=== PATIENT | male | born 1990 | race Hispanic/Latino ===

== ENCOUNTER → 2016-08-20 | Outpatient (REF) | payer OTHER ==
[~2016-08-20] MED LIST: ALBU17IN INH; CITA20TA4 PO; DEPA1TAB3 PO; DEPA500T2 PO; LITH300C PO; PROTPAK PO; VIST25CA PO; VIST50CA PO; ZYPR5TAB2 PO
== END ==
LOC: M SFHCLERA 18:31
PROVIDERS: ATTEND Nurse Practitioner Family
DX: R30.0 Dysuria (principal)

== ENCOUNTER → 2016-08-23 | Outpatient (REF) | payer OTHER | LOC: M SFHCLERA 08:43 | PROVIDERS: ATTEND Family Medicine | DX: R59.0 Localized enlarged lymph nodes (principal); Z53.9 Procedure and treatment not carried out, unspecified reason ==

== ENCOUNTER → 2016-08-26 | Outpatient (REF) | payer OTHER ==
[2016-08-26 11:17] LABS: MEAN CORPUSCULAR HEMOGLOBIN 31.6 pg (27.0-33.0); MEAN CORPUSCULAR HGB CONC 33.7 g/dl (32.0-36.5); MEAN CORPUSCULAR VOLUME 93.6 fl (80.0-96.0); RED CELL DISTRIBUTION WIDTH 12.4 % (11.5-14.5); WHITE BLOOD COUNT 8.2 K/mm3 (4.0-10.0)
[2016-08-26 11:24] LABS: REASON FOR REVIEW COMPREHENSIVE REVIEW
== END ==
LOC: M SFHCLERA 09:09
PROVIDERS: ATTEND Family Medicine
DX: R59.0 Localized enlarged lymph nodes (principal)

== ENCOUNTER → 2016-08-26 | Outpatient (CLI) | payer BC, OTHER ==
--- NOTE | 2016-08-26 13:18 | REP ---
Soft-tissue ultrasound of the left neck : Postauricular lymphadenopathy. Findings: Scanning in the region of the palpable lump inferior to the ear lobe shows an anechoic 0.6 x 0.7 x 0.3 cm structure without visible Doppler flow. It does display enhanced through transmission. This may be a small cyst. Just inferior to this lump, there is a normal-appearing lymph node which measures 0.5 x 0.4 cm in greatest diameter. Caudal to the lump and a little deeper there is a second small anechoic structure with enhanced through transmission measuring 0.4 x 0.4 x 0.2 cm. This may be a second small cyst. There are multiple lymph nodes seen inferior to the parotid. The largest of these measures 1.5 x 1.3 x 0.8 cm. Impression: Several lymph nodes and two small cysts seen in the region. Clinical and possibly sonographic followup is suggested. Signed by Saji Harmon MD 08/26/2016 01:32 P
== END ==
LOC: M LRY 09:10
PROVIDERS: ATTEND Family Medicine
DX: R59.0 Localized enlarged lymph nodes (principal)

== ENCOUNTER → 2016-12-06 | Outpatient (CLI) | payer BC ==
--- NOTE | 2016-12-07 01:43 | REP ---
Clinical: Anterior knee pain. Technique: AP, lateral, bilateral oblique and sunrise views right knee. Findings: The osseous structures and joint spaces are intact and normal. There is no evidence for acute fracture or dislocation. No joint effusion is appreciated. Surrounding soft tissues are unremarkable. No subcutaneous emphysema or radiodense foreign body. Impression: Normal examination. No acute fracture or dislocation. Signed by Tad Talamantes MD 12/07/2016 01:34 A
== END ==
LOC: M LRY 15:53
PROVIDERS: ATTEND Family Medicine
DX: M25.651 Stiffness of right hip, not elsewhere classified (principal)

== ENCOUNTER 2017-08-10 19:37 | Emergency (ER) | payer MEDICAID, BC ==
[2017-08-10 21:16] LABS: BASO % 0.4 % (0.0-1.0); EOS # 0.1 10^3/uL (0.0-0.50); EOS % 1.2 % (0.0-3.0); HEMATOCRIT 42.6 % (42.0-52.0); HEMOGLOBIN 14.9 g/dl (14.0-18.0); IMMATURE GRANULOCYTE % 0.4 % (0-3.0); LYMPH # 2.5 10^3/uL (1.5-6.5); MEAN CORPUSCULAR HEMOGLOBIN 31.6 pg (27.0-33.0); MEAN CORPUSCULAR VOLUME 90.3 fl (80.0-96.0); MONO # 0.7 10^3/uL (0.0-0.8); MONO % 7.5 % (0.0-5.0); NEUTROPHILS # 5.8 10^3/uL (1.8-7.7); NEUTROPHILS % 63.5 % (36.0-66.0); PLATELET COUNT, AUTOMATED 296 10^3/uL (150-450); RED BLOOD COUNT 4.72 10^6/uL (4.30-6.10); WHITE BLOOD COUNT 9.2 10^3/uL (4.0-10.0)
[2017-08-10 21:29] LABS: D-DIMER QUANT 281.7 ng/ml (<500)
[2017-08-10 21:46] LABS: AMPHETAMINES LEVEL URINE NEGATIVE (NEGATIVE); BARBITURATES URINE NEGATIVE (NEGATIVE); BENZODIAZEPINES URINE NEGATIVE (NEGATIVE); CANNABINOIDS URINE POSITIVE (NEGATIVE); COCAINE METABOLITE URINE NEGATIVE (NEGATIVE); METHADONE URINE NEGATIVE (NEGATIVE); OPIATES URINE NEGATIVE (NEGATIVE); PHENCYCLIDINE URINE NEGATIVE (NEGATIVE)
[2017-08-10 21:58] LABS: ANION GAP 8 MEQ/L (8-16); BLOOD UREA NITROGEN 13 MG/DL (7-18); CALCIUM LEVEL 8.7 MG/DL (8.5-10.1); CARBON DIOXIDE LEVEL 25 MEQ/L (21-32); CHLORIDE LEVEL 110 MEQ/L (98-107); CREATININE FOR GFR 1.05 MG/DL (0.70-1.30); FREE THYROXINE INDEX 3.1 % (1.4-3.8); GLOMERULAR FILTRATION RATE > 60.0 (>60); GLUCOSE, FASTING 98 MG/DL (70-100); MAGNESIUM LEVEL 2.3 MG/DL (1.8-2.4); POTASSIUM SERUM 4.5 MEQ/L (3.5-5.1); SODIUM LEVEL 143 MEQ/L (136-145); T UPTAKE 32 % (33-40); THYROID STIMULATING HORMONE 0.951 uIU/ML (0.358-3.740); THYROXINE (T4) 9.6 UG/DL (4.5-12.0)
[2017-08-10] MEDS: ALBUTEROL SULFATE 2.5 MG/0.5 ML INH NEB SOLN INH (22:00)
[2017-08-10 22:26] LABS: TROPONIN I < 0.02 NG/ML (< 0.10)
== END 2017-08-10 22:35 | disposition home or self-care (01) ==
LOC: M ED 19:37
DX: R07.9 Chest pain, unspecified (principal); J98.01 Acute bronchospasm; Z88.0 Allergy status to penicillin
CPT/HCPCS: 71046

== ENCOUNTER 2019-01-22 14:49 | Emergency (ER) | payer MEDICAID, OTHER, SELFPAY ==
[~2019-01-22] VITALS: Ht 182.9 cm; Wt 102.2 kg
[~2019-01-22 14:49] MED LIST changes: -CITA20TA4 PO; +CITA20TA6 PO; +VENTAER IN
--- NOTE | 2019-01-22 15:24 | REP ---
Clinical: Trauma. Fall. Technique: AP, lateral, bilateral oblique views of the left wrist. Findings: Comminuted displaced fractures involving the distal radius and ulna are appreciated along with soft tissue swelling. Impression: Comminuted displaced fractures in evolving the distal radius and ulna. Electronically Signed by Tad Talamantes MD 01/22/2019 03:16 P
[2019-01-22] MEDS ORDERED: ONDANSETRON 4MG/2ML VIAL (J2405) IV ONE (15:30)
[2019-01-22] MEDS ORDERED: ADACEL/BOOSTRIX VACCINE (DIPHTH/PERTUSS/ACELL/TETANUS)0.5ML SYR (90715) IM ONE (15:30)
[2019-01-22] MEDS: HYDROMORPHONE HCL 0.5 MG/ 0.5 ML SYRINGE (J1170 PER 1) IV PRN ×2 (15:40→16:11)
[2019-01-22] MEDS ORDERED: HYDROMORPHONE HCL 0.5 MG/ 0.5 ML SYRINGE (J1170 PER 1) IV ONE (17:30)
[2019-01-22] MEDS ORDERED: PERC5TAB12 PO (18:37)
[2019-01-22 18:50] VITALS: BP 145/83
[2019-01-22] MEDS ORDERED: PERCOCET 5MG/325MG TAB As Ordered ONE (18:57)
[2019-01-22] MEDS ORDERED: PERCOCET 5MG/325MG TAB PO ONE (19:00)
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
--- NOTE | 2019-01-23 07:41 | REP ---
Clinical: Trauma. Technique: Portable AP and lateral views of the left forearm. Findings: Comminuted fracture dislocation involving the distal radius and ulna. Impression: Comminuted fractures of the distal radius and ulna. Electronically Signed by Tad Talamantes MD 01/22/2019 04:02 P
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
== END 2019-01-22 19:10 | disposition home or self-care (01) ==
LOC: M ED 14:49
DX: S52.502A Unspecified fracture of the lower end of left radius, initial encounter for closed fracture (principal); S52.602A Unspecified fracture of lower end of left ulna, initial encounter for closed fracture; T14.8XXA Other injury of unspecified body region, initial encounter; V23.4XXA Motorcycle driver injured in collision with car, pick-up truck or van in traffic accident, initial encounter; Y92.410 Unspecified street and highway as the place of occurrence of the external cause; Z88.0 Allergy status to penicillin
CPT/HCPCS: 29125; 73090; 73110; 73200; 90471; 90715; 93041; 94760; 96374; 96375; 96376; 99285; J1170; J2405

== ENCOUNTER 2019-01-26 09:54 | Day surgery (SDC) | payer OTHER ==
[~2019-01-26] VITALS: Ht 182.9 cm; Wt 100.2 kg
[~2019-01-26 09:54] MED LIST changes: +LIDOCAINE 1% MDV 20ML VIAL SQ PRN; +LIDOCAINE 2% INJ 100 MG/5 ML SDV (FOR ANES.) As Ordered ONE; +LR 1,000 ML IV ONE; +ONDANSETRON 4MG/2ML VIAL (J2405) As Ordered ONE; +PERC5TAB12 PO; +PROPOFOL 200 MG/20 ML VIAL As Ordered ONE; +ROCURONIUM BROMIDE 50 MG/5 ML VIAL As Ordered ONE
[2019-01-26] MEDS ORDERED: LIDOCAINE 1% MDV 20ML VIAL ONE (09:55)
[2019-01-26] MEDS ORDERED: dexameTHASONE 4 MG/ML 1ML VIAL (J1100) ONE (09:55)
[2019-01-26] MEDS ORDERED: ROPIvacaine 0.5% 30 ML INJECTION (J2795 PER 1MG) ONE (09:55)
[2019-01-26] MEDS ORDERED: fentaNYL 250 MCG/5 ML INJECTION (J3010) As Ordered ONE (10:43)
[2019-01-26] MEDS ORDERED: ACETAMINOPHEN 1000MG 100ML IV BTL (OFIRMEV) (J0131 PER 10MG) As Ordered ONE (10:44)
[2019-01-26] MEDS ORDERED: VANCOMYCIN HCL 1,000 MG, VIAL MATE ADAPTER 1 EACH in D5W 250 ML IV ONE (10:45)
[2019-01-26] MEDS ORDERED: MIDAZOLAM INJ 2 MG/2 ML VIAL (J2250) As Ordered ONE ×2 (10:53→11:16)
[2019-01-26] MEDS ORDERED: fentaNYL 100 MCG/2 ML INJECTION (J3010) As Ordered ONE ×2 (10:53→14:12)
--- NOTE | 2019-01-26 11:39 | REP ---
Clinical: Trauma. Technique: AP, lateral, bilateral oblique views right wrist . Findings: The carpal bones, surrounding osseous structures, soft tissues, and joint spaces are normal. There is no evidence for acute fracture or dislocation. No subcutaneous emphysema or radiodense foreign body. Impression: Normal wrist series. No acute fracture or dislocation Electronically Signed by Tad Talamantes MD 01/26/2019 10:32 A
[2019-01-26] MEDS ORDERED: MIDAZOLAM INJ 2 MG/2 ML VIAL (J2250) IV ONE (11:45)
[2019-01-26] MEDS ORDERED: fentaNYL 100 MCG/2 ML INJECTION (J3010) IV ONE (11:45)
[2019-01-26] MEDS ORDERED: ROCURONIUM BROMIDE 50 MG/5 ML VIAL As Ordered ONE (12:28)
[2019-01-26] MEDS ORDERED: SUGAMMADEX SODIUM 500 MG/5 ML VIAL (BRIDION) As Ordered ONE (14:17)
[2019-01-26] MEDS ORDERED: ONDANSETRON 4MG/2ML VIAL (J2405) As Ordered ONE (15:00)
--- NOTE | 2019-01-26 15:01 | REP ---
Left forearm: Six views. History: Intraoperative films. 1 minute 35 seconds of fluoroscopy time is reported. Findings: A sequence of six last image hold fluoroscopically obtained spot radiographs of the distal forearm and wrist document open reduction internal fixation plating of the distal radial and ulnar fractures. Electronically Signed by Saji Harmon MD 01/26/2019 03:49 P
[2019-01-26] MEDS ORDERED: HYDROMORPHONE HCL 0.5 MG/ 0.5 ML SYRINGE (J1170 PER 1) IV PRN (15:15)
[2019-01-26] MEDS ORDERED: NS 1,000 ML IV SCH (15:15)
[2019-01-26] MEDS ORDERED: fentaNYL 100 MCG/2 ML INJECTION (J3010) IV PRN (15:15)
[2019-01-26] MEDS ORDERED: LR 1,000 ML IV SCH (15:15)
[2019-01-26] MEDS ORDERED: PERCOCET 5MG/325MG TAB PO PRN ×3 (15:15→16:15)
[2019-01-26] MEDS ORDERED: ONDANSETRON 4MG/2ML VIAL (J2405) IV PRN (15:15)
[2019-01-26] MEDS ORDERED: METOCLOPRAMIDE INJ 10MG/2ML VIAL (J2765) As Ordered ONE (15:35)
[2019-01-26] MEDS ORDERED: METOCLOPRAMIDE INJ 10MG/2ML VIAL (J2765) IV PRN (15:45)
[2019-01-26 16:35] VITALS: BP 138/80
[2019-01-27] MEDS ORDERED: KETO10TAB PO (16:15)
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
== END 2019-01-26 17:20 | disposition home or self-care (01) ==
LOC: M SDC 09:54
PROVIDERS: ATTEND Orthopaedic Surgery Hand Surgery
DX: S52.252A Displaced comminuted fracture of shaft of ulna, left arm, initial encounter for closed fracture (principal); S52.502A Unspecified fracture of the lower end of left radius, initial encounter for closed fracture; V29.9XXA Motorcycle rider (driver) (passenger) injured in unspecified traffic accident, initial encounter; Y92.410 Unspecified street and highway as the place of occurrence of the external cause; Y99.9 Unspecified external cause status; Y93.89 Activity, other specified; Z88.0 Allergy status to penicillin; K21.9 Gastro-esophageal reflux disease without esophagitis; F41.9 Anxiety disorder, unspecified; F32.9 Major depressive disorder, single episode, unspecified
CPT/HCPCS: 25575; 64415; 73110; 76000; 96374; C1713; J0131; J1100; J2250; J2405; J2765; J2795; J3010; J3370

== ENCOUNTER 2019-01-27 15:06 | Emergency (ER) | payer OTHER ==
[~2019-01-27] VITALS: Ht 182.9 cm; Wt 100.5 kg
[~2019-01-27 15:06] MED LIST changes: -LIDOCAINE 1% MDV 20ML VIAL SQ PRN; -LIDOCAINE 2% INJ 100 MG/5 ML SDV (FOR ANES.) As Ordered ONE; -LR 1,000 ML IV ONE; -ONDANSETRON 4MG/2ML VIAL (J2405) As Ordered ONE; -PROPOFOL 200 MG/20 ML VIAL As Ordered ONE; -ROCURONIUM BROMIDE 50 MG/5 ML VIAL As Ordered ONE
[2019-01-27] MEDS ORDERED: MORPHINE 4 MG/ML 1ML VIAL/SYRINGE (J2270) IM ONE (15:45)
[2019-01-27] MEDS ORDERED: KETO10TAB PO (16:15)
[2019-01-27 16:20] VITALS: BP 151/94
== END 2019-01-27 16:23 | disposition home or self-care (01) ==
LOC: EEVIPCON 15:06 → M ED 15:06
DX: G89.18 Other acute postprocedural pain (principal); S52.252D Displaced comminuted fracture of shaft of ulna, left arm, subsequent encounter for closed fracture with routine healing; S52.502D Unspecified fracture of the lower end of left radius, subsequent encounter for closed fracture with routine healing; X58.XXXA Exposure to other specified factors, initial encounter; Y92.9 Unspecified place or not applicable; Y93.9 Activity, unspecified; Y99.9 Unspecified external cause status; M51.9 Unspecified thoracic, thoracolumbar and lumbosacral intervertebral disc disorder; F41.9 Anxiety disorder, unspecified; F32.9 Major depressive disorder, single episode, unspecified; Z88.0 Allergy status to penicillin
CPT/HCPCS: 99283; J2270

== ENCOUNTER → 2019-03-19 | Outpatient (CLI) | payer OTHER ==
[~2019-03-19] MED LIST changes: +KETO10TAB PO
--- NOTE | 2019-03-20 05:15 | REP ---
Clinical: Palpable lump along the left side of the neck. Technique: Real time breen scale and color evaluation using linear high frequency transducer. Findings: Ultrasound examination along the left side of the neck demonstrates a single normal-appearing lymph node measuring 6.7 x 4.9 x 3.2 mm. Impression: Palpable lump corresponds to normal appearing lymph node. Electronically Signed by Tad Talamantes MD 03/20/2019 05:06 A
== END ==
LOC: M RAD 09:02
PROVIDERS: ATTEND Family Medicine
DX: R59.9 Enlarged lymph nodes, unspecified (principal)

== ENCOUNTER → 2019-09-06 | Outpatient (REF) | payer OTHER ==
[2019-09-06 16:20] LABS: INFLUENZA A AMPLIFICATION NEGATIVE (NEGATIVE); INFLUENZA B AMPLIFICATION NEGATIVE (NEGATIVE)
== END ==
LOC: M LAB REF 15:10
PROVIDERS: ATTEND Physician Assistant
DX: J11.1 Influenza due to unidentified influenza virus with other respiratory manifestations (principal)

== ENCOUNTER → 2020-08-06 | Outpatient (REF) | payer OTHER ==
[2020-08-06 17:32] LABS: CHLAMYDIA DNA AMPLIFICATION NEGATIVE (NEGATIVE); GC DNA AMPLIFICATION NEGATIVE (NEGATIVE)
== END ==
LOC: M SFHCLERA 10:25
PROVIDERS: ATTEND Nurse Practitioner Family
DX: R30.0 Dysuria (principal)

== ENCOUNTER → 2020-08-06 | Outpatient (CLI) | payer OTHER ==
--- NOTE | 2020-08-06 12:29 | REP ---
INDICATION: TESTIS MASS LT. COMPARISON: None. TECHNIQUE: Real-time sonographic evaluation of scrotum and contents performed. FINDINGS: Testicles are normal in size and echotexture, right testicle measuring 4.1 x 2.0 x 2.9 cm left testicle 4.2 x 2.0 x 2.9 cm. There is no testicular mass or torsion. Blood flow is seen in each testicle with duplex Doppler evaluation. 3 mm cyst is seen in the head of the left epididymis. Prominent vas deferens bilaterally is likely due to prior vasectomy. There is no significant hydrocele. IMPRESSION: No testicular mass or torsion. Prominent vas deferens bilaterally likely due to prior vasectomy. This appears to correspond to the patient's reported palpable lump. <Electronically signed by Veto Mcfarland > 08/06/20 [id number]
== END ==
LOC: M RAD 11:29
PROVIDERS: ATTEND Nurse Practitioner Family
DX: N50.89 Other specified disorders of the male genital organs (principal)

== ENCOUNTER → 2020-08-14 | Outpatient (REF) | payer OTHER ==
[2020-08-14 15:23] LABS: BASO % 0.4 % (0.0-1.0); EOS # 0.1 10^3/uL (0.0-0.5); EOS % 0.5 % (0.0-3.0); HEMOGLOBIN 15.9 g/dl (13.5-17.5); LYMPH # 2.6 10^3/uL (1.5-5.0); MEAN CORPUSCULAR HEMOGLOBIN 31.7 pg (27.0-33.0); MEAN CORPUSCULAR HGB CONC 33.8 g/dl (32.0-36.5); MEAN CORPUSCULAR VOLUME 93.8 fl (80.0-96.0); MONO # 0.8 10^3/uL (0.0-0.8); MONO % 7.4 % (2.0-8.0); NEUTROPHILS # 6.8 10^3/uL (1.5-8.5); NEUTROPHILS % 66.1 % (36.0-66.0); PLATELET COUNT, AUTOMATED 325 10^3/uL (150-450); RED BLOOD COUNT 5.01 10^6/uL (4.30-6.10); WHITE BLOOD COUNT 10.3 10^3/uL (4.0-10.0)
[2020-08-14 15:29] LABS: ALBUMIN 4.3 GM/DL (3.2-5.2); ALT/SGPT 51 U/L (12-78); BILIRUBIN,TOTAL 0.4 MG/DL (0.2-1.0); BLOOD UREA NITROGEN 17 MG/DL (7-18); CALCIUM LEVEL 9.3 MG/DL (8.5-10.1); CARBON DIOXIDE LEVEL 28 MEQ/L (21-32); CHLORIDE LEVEL 107 MEQ/L (98-107); CREATININE FOR GFR 1.03 MG/DL (0.70-1.30); GLOMERULAR FILTRATION RATE > 60.0 (>60); GLUCOSE, FASTING 93 MG/DL (70-100); POTASSIUM SERUM 4.1 MEQ/L (3.5-5.1); SODIUM LEVEL 141 MEQ/L (136-145)
[2020-08-14 16:30] LABS: HEPATITIS B SURFACE ANTIGEN NEGATIVE (NEGATIVE)
[2020-08-14 16:56] LABS: HEPATITIS C VIRUS ABY INDEX 0.1 INDEX (<0.8)
[2020-08-14 16:57] LABS: HEPATITIS B CORE ANTIBODY IGM NEGATIVE (NEGATIVE)
[2020-08-14 16:58] LABS: HIV 1&2 SCREEN CENTAUR NEGATIVE (NEGATIVE)
[2020-08-14 16:59] LABS: HEPATITIS A ANTIBODY IGM NEGATIVE (NEGATIVE)
[2020-08-14 17:04] LABS: APPEARANCE, URINE CLEAR (CLEAR); BACTERIA, URINE AUTO NEGATIVE (NEGATIVE); BILIRUBIN, URINE AUTO NEGATIVE (NEGATIVE); BLOOD, URINE BLOOD 1+ (NEGATIVE); COLOR, URINE YELLOW (YELLOW); GLUCOSE, URINE (UA) AUTO NEGATIVE (NEGATIVE); KETONE, URINE AUTO NEGATIVE (NEGATIVE); LEUKOCYTE ESTERASE, URINE AUTO NEGATIVE (NEGATIVE); MUCUS, URINE SMALL (NEGATIVE); NITRITE, URINE AUTO NEGATIVE (NEGATIVE); PROTEIN, URINE AUTO 1+ mg/dL (NEGATIVE); RBC, URINE AUTO 6 /HPF (0-3); SPECIFIC GRAVITY URINE AUTO 1.026 (1.002-1.035); SQUAMOUS EPITHELIAL CELL UR AU 1 /HPF (0-6); UROBILINOGEN, URINE AUTO 0.2 mg/dL (0.0-2.0); WBC, URINE AUTO 2 /HPF (0-3)
== END ==
LOC: M SFHCLERA 13:50
PROVIDERS: ATTEND Family Medicine
DX: R31.9 Hematuria, unspecified (principal); R17 Unspecified jaundice

== ENCOUNTER → 2020-08-18 | Outpatient (REF) | payer OTHER ==
[2020-08-18 15:35] LABS: PROTEIN, URINE AUTO NEGATIVE (NEGATIVE)
[2020-08-18 16:00] LABS: COMPLEMENT C3 133 MG/DL (90-180); COMPLEMENT C4 26 MG/DL (10-40)
== END ==
LOC: M SFHCLERA 13:10
PROVIDERS: ATTEND Family Medicine
DX: R31.0 Gross hematuria (principal)

== ENCOUNTER → 2020-08-20 | Outpatient (CLI) | payer OTHER ==
--- NOTE | 2020-08-20 09:06 | REP ---
INDICATION: GROSS HEMATURIA. COMPARISON: None. TECHNIQUE: Urinary tract sonography. FINDINGS: Scanning at the level of the urinary bladder shows mild diffuse thickening of the bladder bridges. No other abnormality.. Renal cortical echogenicity pattern is normal bilaterally and contours are smooth. There is no evidence of hydronephrosis, cyst, mass, or calculus in either kidney. The right kidney measures 10.2 x 5.7 x 5.3 cm. Left renal dimensions are 11.1 x 5.5 x 5.1 cm. IMPRESSION: No evidence of hydronephrosis or calculus. No mass lesion is visible. Mild diffuse thickening of the urinary bladder bridges. Otherwise negative.. <Electronically signed by Benny Harmon > 08/20/20 [id number]
== END ==
LOC: M RAD 07:00
PROVIDERS: ATTEND Family Medicine
DX: R31.0 Gross hematuria (principal)

== ENCOUNTER → 2020-09-08 | Outpatient (REF) | payer OTHER ==
[2020-09-08 17:43] LABS: APPEARANCE, URINE CLEAR (CLEAR); BACTERIA, URINE AUTO NEGATIVE (NEGATIVE); BILIRUBIN, URINE AUTO NEGATIVE (NEGATIVE); BLOOD, URINE BLOOD NEGATIVE (NEGATIVE); COLOR, URINE YELLOW (YELLOW); GLUCOSE, URINE (UA) AUTO NEGATIVE (NEGATIVE); KETONE, URINE AUTO NEGATIVE (NEGATIVE); LEUKOCYTE ESTERASE, URINE AUTO NEGATIVE (NEGATIVE); MUCUS, URINE SMALL (NEGATIVE); NITRITE, URINE AUTO NEGATIVE (NEGATIVE); PROTEIN, URINE AUTO NEGATIVE (NEGATIVE); RBC, URINE AUTO 2 /HPF (0-3); SPECIFIC GRAVITY URINE AUTO 1.018 (1.002-1.035); SQUAMOUS EPITHELIAL CELL UR AU 1 /HPF (0-6); UROBILINOGEN, URINE AUTO 0.2 mg/dL (0.0-2.0); WBC, URINE AUTO 2 /HPF (0-3)
== END ==
LOC: M SMT 16:47
PROVIDERS: ATTEND Nurse Practitioner Family
DX: R31.0 Gross hematuria (principal)

== ENCOUNTER → 2020-09-23 | Outpatient (CLI) | payer OTHER ==
[~2020-09-23] MED LIST changes: +ISOVUE-370 76% 100ML VIAL As Ordered ONE
--- NOTE | 2020-09-24 19:27 | REP ---
INDICATION: HEMATURIA. COMPARISON: None TECHNIQUE: Axial precontrast, contrast-enhanced and delayed images from the lung bases to the pubic symphysis using 100 cc Isovue 370 intravenous contrast material. Coronal and sagittal reformations obtained. Volume rendered 3D CT urogram created. This CT examination was performed using the following dose reduction techniques: Automated exposure control, adjustment of mA and/or kv according to the patient's size, and the use of iterative reconstruction technique. FINDINGS: Liver, spleen, pancreas, gallbladder, bilateral adrenal glands and kidneys are normal. Specifically, the kidneys are normal in appearance in all phases of evaluation without nephrolithiasis, cystic, or renal mass lesion. Delayed images demonstrate normal appearance to the collecting system bilaterally. The enteric system including stomach, small, and large bowel appears normal. No evidence for obstruction or acute inflammatory process. Normal terminal ileum and appendix are identified in the right lower quadrant. Pelvis demonstrates normal bladder and age-appropriate prostate/seminal vesicles. No ascites. No free air. No intraperitoneal or retroperitoneal adenopathy. Abdominal aorta and vasculature appear normal. Musculoskeletal structures are intact and without acute osseous abnormality. IMPRESSION: No acute abdominopelvic pathology appreciated. Normal appearance of the urinary tract system. <Electronically signed by Tad Talamantes > 09/24/201922
== END ==
LOC: M RAD 13:02
PROVIDERS: ATTEND Nurse Practitioner Family
DX: R31.0 Gross hematuria (principal)
CPT/HCPCS: 74178; Q9967

== ENCOUNTER → 2020-11-11 | Outpatient (REF) | payer OTHER ==
[~2020-11-11] MED LIST changes: -ISOVUE-370 76% 100ML VIAL As Ordered ONE; +LEVO500T3 PO
[2020-11-11 13:38] LABS: APPEARANCE, URINE CLEAR (CLEAR); BACTERIA, URINE AUTO 1+ (NEGATIVE); BILIRUBIN, URINE AUTO NEGATIVE (NEGATIVE); BLOOD, URINE BLOOD 1+ (NEGATIVE); COLOR, URINE YELLOW (YELLOW); GLUCOSE, URINE (UA) AUTO NEGATIVE (NEGATIVE); KETONE, URINE AUTO NEGATIVE (NEGATIVE); LEUKOCYTE ESTERASE, URINE AUTO NEGATIVE (NEGATIVE); MUCUS, URINE SMALL (NEGATIVE); NITRITE, URINE AUTO NEGATIVE (NEGATIVE); PROTEIN, URINE AUTO NEGATIVE (NEGATIVE); RBC, URINE AUTO 8 /HPF (0-3); SPECIFIC GRAVITY URINE AUTO 1.021 (1.002-1.035); SQUAMOUS EPITHELIAL CELL UR AU 0 /HPF (0-6); UROBILINOGEN, URINE AUTO 0.2 mg/dL (0.0-2.0); WBC, URINE AUTO 1 /HPF (0-3)
== END ==
LOC: M SMT 12:40
PROVIDERS: ATTEND Urology
DX: N39.0 Urinary tract infection, site not specified (principal)

== ENCOUNTER 2021-06-01 13:28 | Inpatient (IN) | payer MEDICAID, OTHER ==
[~2021-06-01] VITALS: Ht 182.9 cm; Wt 97.8 kg
[~2021-06-01 13:28] MED LIST changes: -LEVO500T3 PO; +LEVO500T4 PO
[2021-06-01 14:31] LABS: HEMATOCRIT 45.8 % (42.0-52.0); HEMOGLOBIN 15.5 g/dl (13.5-17.5); MEAN CORPUSCULAR HEMOGLOBIN 31.6 pg (27.0-33.0); MEAN CORPUSCULAR HGB CONC 33.8 g/dl (32.0-36.5); MEAN CORPUSCULAR VOLUME 93.3 fl (80.0-96.0); PLATELET COUNT, AUTOMATED 323 10^3/uL (150-450); RED BLOOD COUNT 4.91 10^6/uL (4.30-6.10); WHITE BLOOD COUNT 7.6 10^3/uL (4.0-10.0)
[2021-06-01 14:56] LABS: AMPHETAMINES LEVEL URINE NEGATIVE (NEGATIVE); BARBITURATES URINE NEGATIVE (NEGATIVE); BENZODIAZEPINES URINE NEGATIVE (NEGATIVE); CANNABINOIDS URINE POSITIVE (NEGATIVE); COCAINE METABOLITE URINE NEGATIVE (NEGATIVE); METHADONE URINE NEGATIVE (NEGATIVE); OPIATES URINE NEGATIVE (NEGATIVE); PHENCYCLIDINE URINE NEGATIVE (NEGATIVE)
[2021-06-01 15:08] LABS: ACETAMINOPHEN LEVEL < 2.0 UG/ML (10.0-30.0); ALT/SGPT 43 U/L (12-78); BILIRUBIN,DIRECT 0.1 MG/DL (0.0-0.2); BILIRUBIN,TOTAL 0.4 MG/DL (0.2-1.0); BLOOD UREA NITROGEN 8 MG/DL (7-18); CALCIUM LEVEL 9.1 MG/DL (8.5-10.1); CARBON DIOXIDE LEVEL 27 MEQ/L (21-32); CHLORIDE LEVEL 110 MEQ/L (98-107); CREATININE FOR GFR 0.96 MG/DL (0.70-1.30); ETHYL ALCOHOL (ETHANOL) < 0.003 % (0.000-0.010); GLOMERULAR FILTRATION RATE > 60.0 (>60); GLUCOSE, FASTING 93 MG/DL (70-100); POTASSIUM SERUM 4.5 MEQ/L (3.5-5.1); SALICYLATE LEVEL < 1.7 MG/DL (5.0-30.0); SODIUM LEVEL 142 MEQ/L (136-145); THYROID STIMULATING HORMONE 0.598 uIU/ML (0.358-3.740); TOTAL PROTEIN 7.6 GM/DL (6.4-8.2)
[2021-06-01 16:32] LABS: RSV AMPLIFICATION NEGATIVE (NEGATIVE)
[2021-06-01] MEDS ORDERED: LORazepam 0.5 MG TAB PO ONE (17:00)
[2021-06-01] MEDS ORDERED: HOME MED LIST COMPLETE! XX SCH (17:30)
[2021-06-02] MEDS ORDERED: LORazepam 2 MG TAB PO ONE (08:45)
[2021-06-02] MEDS ORDERED: LORazepam 0.5 MG TAB PO STA (18:40)
[2021-06-02] MEDS: RAMELTEON 8 MG TAB (ROZEREM) PO SCH (20:53)
[2021-06-03] MEDS ORDERED: LORazepam 2 MG TAB PO ONE (10:25)
[2021-06-03] MEDS ORDERED: MAALOX 30 ML SUSP *UDC PO PRN (14:45)
[2021-06-03] MEDS ORDERED: MOM 30ML SUSPENSION UDC PO PRN (14:45)
[2021-06-03] MEDS ORDERED: ACETAMINOPHEN TAB 650MG DOSE (2X325MG) PO PRN (14:45)
[2021-06-03] MEDS ORDERED: NICOTINE 21MG/24HR 1 EA TRANSDERMAL TD PRN (14:45)
[2021-06-03 16:08] VITALS: BP 131/72
[2021-06-03] MEDS: RAMELTEON 8 MG TAB (ROZEREM) PO SCH (20:32)
[2021-06-03] MEDS: traZODone 50 MG TAB PO PRN (22:22)
[2021-06-04 06:16] VITALS: BP 129/71
[2021-06-04] MEDS ORDERED: hydrOXYzine 50 MG TAB PO STA (08:51)
[2021-06-04] MEDS: DIVALPROEX 500MG *ER* TAB PO SCH (12:24)
[2021-06-04] MEDS: RAMELTEON 8 MG TAB (ROZEREM) PO SCH (21:50)
[2021-06-04] MEDS: traZODone 50 MG TAB PO PRN (22:03)
[2021-06-05 06:37] LABS: CHOLESTEROL RISK RATIO 6.035 (<5)
[2021-06-05 07:08] VITALS: BP 137/77
[2021-06-05] MEDS: DIVALPROEX 500MG *ER* TAB PO SCH (08:19)
[2021-06-05] MEDS: OMEGA-3 1000MG CAPSULE PO SCH ×2 (11:17→21:39)
[2021-06-05 16:55] VITALS: BP 132/89
[2021-06-05] MEDS: RAMELTEON 8 MG TAB (ROZEREM) PO SCH (21:39)
[2021-06-06 06:24] VITALS: BP 127/81
[2021-06-06] MEDS: DIVALPROEX 500MG *ER* TAB PO SCH (08:18)
[2021-06-06] MEDS: OMEGA-3 1000MG CAPSULE PO SCH ×2 (08:18→20:49)
[2021-06-06] MEDS: RAMELTEON 8 MG TAB (ROZEREM) PO SCH (21:08)
[2021-06-06] MEDS: traZODone 50 MG TAB PO PRN (21:08)
[2021-06-07 06:22] VITALS: BP 118/88
[2021-06-07] MEDS: OMEGA-3 1000MG CAPSULE PO SCH ×2 (08:16→20:07)
[2021-06-07] MEDS: DIVALPROEX 500MG *ER* TAB PO SCH (08:16)
[2021-06-07] MEDS: RAMELTEON 8 MG TAB (ROZEREM) PO SCH (20:26)
[2021-06-07] MEDS: traZODone 50 MG TAB PO PRN (20:26)
[2021-06-08 06:59] VITALS: BP 134/88
[2021-06-08] MEDS: OMEGA-3 1000MG CAPSULE PO SCH (08:18)
[2021-06-08] MEDS: DIVALPROEX 500MG *ER* TAB PO SCH (08:18)
[2021-06-08] MEDS ORDERED: ABIL1TAB11 PO ×2 (08:58→12:14)
[2021-06-08] MEDS ORDERED: DEPA500T2 PO (08:58)
[2021-06-08] MEDS ORDERED: TRAZ-252 PO (08:58)
[2021-06-08] MEDS ORDERED: NICO21PAT TD (08:58)
[2021-06-08] MEDS ORDERED: RAME8TAB2 PO (08:58)
[2021-06-08] MEDS ORDERED: ABIL10TA9 PO (12:14)
[2021-06-12] MEDS ORDERED: DEPA1TAB3 PO (09:08)
== END 2021-06-08 10:20 | disposition home or self-care (01) | DRG 753 ==
LOC: EEVIPCON 13:28 → M ED 13:28 → M ED INP 06-03 14:21 → UNDOADMIN 06-03 14:21 → M ED INP 06-03 14:41 → M PSY 06-03 14:41
PROVIDERS: ADMIT Student in an Organized Health Care Education/Training Program; ATTEND Student in an Organized Health Care Education/Training Program
DX: F31.9 Bipolar disorder, unspecified (principal); R45.850 Homicidal ideations; R45.851 Suicidal ideations; G40.909 Epilepsy, unspecified, not intractable, without status epilepticus; F43.9 Reaction to severe stress, unspecified; F12.10 Cannabis abuse, uncomplicated; F17.200 Nicotine dependence, unspecified, uncomplicated; Z88.0 Allergy status to penicillin

== ENCOUNTER 2022-01-06 10:25 | Inpatient (IN) | payer MEDICAID, OTHER ==
[~2022-01-06] VITALS: Ht 182.9 cm; Wt 100.0 kg
[2022-01-06] MEDS: NICOTINE 21MG/24HR 1 EA TRANSDERMAL TD SCH (09:00)
[~2022-01-06 10:25] MED LIST changes: +ABIL10TA9 PO; +ABIL1TAB11 PO; +NICO21PAT TD; +RAME8TAB2 PO; +TRAZ-252 PO
[2022-01-06] MEDS ORDERED: TRAZ-257 PO (10:51)
[2022-01-06 11:17] LABS: HEMATOCRIT 44.8 % (42.0-52.0); MEAN CORPUSCULAR HEMOGLOBIN 32.7 pg (27.0-33.0); MEAN CORPUSCULAR HGB CONC 35.7 g/dl (32.0-36.5); MEAN CORPUSCULAR VOLUME 91.6 fl (80.0-96.0); PLATELET COUNT, AUTOMATED 315 10^3/uL (150-450); RED BLOOD COUNT 4.89 10^6/uL (4.30-6.10); WHITE BLOOD COUNT 7.6 10^3/uL (4.0-10.0)
[2022-01-06 11:56] LABS: ACETAMINOPHEN LEVEL < 2.0 UG/ML (10.0-30.0); ALBUMIN 4.3 GM/DL (3.2-5.2); ALT/SGPT 56 U/L (12-78); BILIRUBIN,DIRECT 0.1 MG/DL (0.0-0.2); BILIRUBIN,TOTAL 0.4 MG/DL (0.2-1.0); BLOOD UREA NITROGEN 13 MG/DL (7-18); CALCIUM LEVEL 9.6 MG/DL (8.5-10.1); CARBON DIOXIDE LEVEL 26 MEQ/L (21-32); CHLORIDE LEVEL 111 MEQ/L (98-107); ETHYL ALCOHOL (ETHANOL) < 0.003 % (0.000-0.010); GLOMERULAR FILTRATION RATE > 60.0 (>60); GLUCOSE, FASTING 93 MG/DL (70-100); POTASSIUM SERUM 4.2 MEQ/L (3.5-5.1); SALICYLATE LEVEL < 1.7 MG/DL (5.0-30.0); SODIUM LEVEL 139 MEQ/L (136-145); TOTAL PROTEIN 7.7 GM/DL (6.4-8.2)
[2022-01-06 12:04] LABS: AMPHETAMINES LEVEL URINE NEGATIVE (NEGATIVE); BARBITURATES URINE NEGATIVE (NEGATIVE); BENZODIAZEPINES URINE NEGATIVE (NEGATIVE); CANNABINOIDS URINE POSITIVE (NEGATIVE); COCAINE METABOLITE URINE NEGATIVE (NEGATIVE); METHADONE URINE NEGATIVE (NEGATIVE); OPIATES URINE NEGATIVE (NEGATIVE); PHENCYCLIDINE URINE NEGATIVE (NEGATIVE)
[2022-01-06 12:07] LABS: RSV AMPLIFICATION NEGATIVE (NEGATIVE)
[2022-01-06] MEDS ORDERED: ACETAMINOPHEN TAB 650MG DOSE (2X325MG) PO PRN (13:20)
[2022-01-06] MEDS ORDERED: MOM 30ML SUSPENSION UDC PO PRN (13:20)
[2022-01-06] MEDS ORDERED: OLANZapine ORAL DISINTEGRATING TAB 5MG PO PRN (13:20)
[2022-01-06] MEDS ORDERED: MAALOX 30 ML SUSP *UDC PO PRN (13:20)
[2022-01-06] MEDS ORDERED: HOME MED LIST COMPLETE! XX SCH (13:50)
[2022-01-06 15:20] VITALS: BP 111/69
[2022-01-06] MEDS: ARIPiprazole 15 MG TAB (AbiLIFY) PO SCH (20:19)
[2022-01-06] MEDS: traZODone 50 MG TAB PO PRN (20:19)
[2022-01-07 06:30] VITALS: BP 127/71
[2022-01-07] MEDS: NICOTINE 21MG/24HR 1 EA TRANSDERMAL TD SCH (08:10)
[2022-01-07] MEDS: LIDOCAINE 5% (LIDODERM) PATCH TD SCH (15:05)
[2022-01-07] MEDS: ARIPiprazole 15 MG TAB (AbiLIFY) PO SCH (20:09)
[2022-01-07] MEDS: **NOTE PATIENT COMMENT** MISC XX SCH (20:09)
[2022-01-07] MEDS: traZODone 50 MG TAB PO PRN (20:44)
[2022-01-08 06:33] VITALS: BP 119/87
[2022-01-08 06:56] LABS: CHOLESTEROL RISK RATIO 5.862 (<5)
[2022-01-08] MEDS: OMEGA-3 1000MG CAPSULE PO SCH ×2 (11:29→20:07)
[2022-01-08] MEDS: LIDOCAINE 5% (LIDODERM) PATCH TD SCH (11:29)
[2022-01-08 17:55] VITALS: BP 125/90
[2022-01-08] MEDS: ARIPiprazole 15 MG TAB (AbiLIFY) PO SCH (20:07)
[2022-01-08] MEDS: **NOTE PATIENT COMMENT** MISC XX SCH (20:08)
[2022-01-08] MEDS: traZODone 50 MG TAB PO PRN (21:29)
[2022-01-09 06:45] VITALS: BP 111/64
[2022-01-09] MEDS: LIDOCAINE 5% (LIDODERM) PATCH TD SCH (08:07)
[2022-01-09] MEDS: OMEGA-3 1000MG CAPSULE PO SCH ×2 (08:07→20:10)
[2022-01-09] MEDS ORDERED: ARIPiprazole MONOHYDRATE 400 MG INJ (ABILIFY)(FREE PSY INPT ONLY) IM ONE (10:00)
[2022-01-09 17:21] VITALS: BP 134/90
[2022-01-09] MEDS: hydrOXYzine 50 MG TAB PO PRN (20:10)
[2022-01-09] MEDS: ARIPiprazole 15 MG TAB (AbiLIFY) PO SCH (20:10)
[2022-01-09] MEDS: **NOTE PATIENT COMMENT** MISC XX SCH (20:12)
[2022-01-09] MEDS: traZODone 50 MG TAB PO PRN (21:26)
[2022-01-09 21:35] VITALS: BP 158/80
[2022-01-10 06:36] VITALS: BP 123/68
[2022-01-10] MEDS: OMEGA-3 1000MG CAPSULE PO SCH ×2 (07:49→20:11)
[2022-01-10] MEDS: LIDOCAINE 5% (LIDODERM) PATCH TD SCH (07:49)
[2022-01-10] MEDS: hydrOXYzine 50 MG TAB PO PRN ×2 (13:02→19:28)
[2022-01-10 18:42] VITALS: BP 139/83
[2022-01-10] MEDS: **NOTE PATIENT COMMENT** MISC XX SCH (20:10)
[2022-01-10] MEDS: ARIPiprazole 15 MG TAB (AbiLIFY) PO SCH (20:11)
[2022-01-10] MEDS: traZODone 50 MG TAB PO PRN (21:01)
[2022-01-11 07:09] VITALS: BP 137/92
[2022-01-11] MEDS: OMEGA-3 1000MG CAPSULE PO SCH (08:33)
[2022-01-11] MEDS: hydrOXYzine 50 MG TAB PO PRN (08:33)
[2022-01-11] MEDS: LIDOCAINE 5% (LIDODERM) PATCH TD SCH (08:34)
[2022-01-11] MEDS ORDERED: ABIL1INJ2 IM (08:54)
[2022-01-11] MEDS ORDERED: ABIL1TAB12 PO (08:54)
[2022-01-11] MEDS ORDERED: HYDR50TA70 PO (08:54)
[2022-01-11] MEDS ORDERED: FISH1CAP26 PO (08:54)
== END 2022-01-11 12:51 | disposition home or self-care (01) | DRG 753 ==
LOC: M ED 10:25 → M ED INP 13:17 → M PSY 15:10
PROVIDERS: ADMIT Student in an Organized Health Care Education/Training Program; ATTEND Student in an Organized Health Care Education/Training Program
DX: F31.81 Bipolar II disorder (principal); Z91.128 Patient's intentional underdosing of medication regimen for other reason; F12.10 Cannabis abuse, uncomplicated; M51.26 Other intervertebral disc displacement, lumbar region; F17.290 Nicotine dependence, other tobacco product, uncomplicated; Z79.899 Other long term (current) drug therapy

== ENCOUNTER 2022-01-23 08:24 | Emergency (ER) | payer MEDICAID, OTHER ==
[~2022-01-23] VITALS: Ht 182.9 cm; Wt 97.0 kg
[~2022-01-23 08:24] MED LIST changes: +ABIL1INJ2 IM; +ABIL1TAB12 PO; +FISH1CAP26 PO; +HYDR50TA70 PO; +TRAZ-257 PO
[2022-01-23] MEDS ORDERED: IBUP-1114 PO (08:34)
[2022-01-23] MEDS ORDERED: KETOROLAC 30 MG/ML 1ML VIAL IV ONE (10:40)
[2022-01-23 11:09] LABS: BASO % 0.2 % (0.0-1.0); EOS # 0.1 10^3/uL (0.0-0.5); EOS % 1.1 % (0.0-3.0); LYMPH # 2.3 10^3/uL (1.5-5.0); MEAN CORPUSCULAR HGB CONC 34.1 g/dl (32.0-36.5); MEAN CORPUSCULAR VOLUME 93.8 fl (80.0-96.0); MONO # 0.7 10^3/uL (0.0-0.8); MONO % 7.2 % (2.0-8.0); NEUTROPHILS # 5.9 10^3/uL (1.5-8.5); NEUTROPHILS % 66.1 % (36.0-66.0); PLATELET COUNT, AUTOMATED 288 10^3/uL (150-450); RED BLOOD COUNT 4.69 10^6/uL (4.30-6.10)
[2022-01-23 11:25] LABS: BLOOD UREA NITROGEN 18 MG/DL (7-18); CALCIUM LEVEL 9.2 MG/DL (8.5-10.1); CARBON DIOXIDE LEVEL 27 MEQ/L (21-32); CHLORIDE LEVEL 108 MEQ/L (98-107); CREATININE FOR GFR 1.03 MG/DL (0.70-1.30); GLOMERULAR FILTRATION RATE > 60.0 (>60); GLUCOSE, FASTING 94 MG/DL (70-100); POTASSIUM SERUM 4.7 MEQ/L (3.5-5.1); SODIUM LEVEL 141 MEQ/L (136-145)
[2022-01-23] MEDS ORDERED: CEPH500C PO (11:36)
[2022-01-23 11:49] VITALS: BP 119/80
== END 2022-01-23 11:51 | disposition home or self-care (01) ==
LOC: M ED 08:24
DX: L03.115 Cellulitis of right lower limb (principal); Z88.0 Allergy status to penicillin; Z79.899 Other long term (current) drug therapy
CPT/HCPCS: 73590; 80048; 82550; 85025; 93971; 96374; 99283; J1885

== ENCOUNTER → 2022-05-27 | Outpatient (REF) | payer OTHER, MEDICAID ==
[~2022-05-27] MED LIST changes: +CEPH500C PO; +IBUP-1114 PO; +LEVO1TAB39 PO; -LEVO500T4 PO
== END ==
LOC: M LAB REF 12:14
PROVIDERS: ATTEND Physician Assistant
DX: R50.9 Fever, unspecified (principal); R52 Pain, unspecified

== ENCOUNTER 2022-11-14 11:37 | Emergency (ER) | payer MEDICAID, OTHER ==
[~2022-11-14] VITALS: Ht 182.9 cm; Wt 91.6 kg
[2022-11-14 14:06] VITALS: BP 109/73
== END 2022-11-14 14:20 | disposition home or self-care (01) ==
LOC: M ED 11:37
DX: L73.2 Hidradenitis suppurativa (principal); M51.25 Other intervertebral disc displacement, thoracolumbar region; Z88.0 Allergy status to penicillin